=== PATIENT | male | born 1990 | race Caucasian/White ===

== ENCOUNTER 2024-08-10 13:24 | Emergency (ER) | payer MEDICAID ==
[~2024-08-10] VITALS: Ht 177.8 cm; Wt 78.0 kg
[2024-08-10 13:27] VITALS: BP 100/53; PULSE 70; RESP 20; TEMP 36.8; O2SAT 100
== END 2024-08-10 14:55 | disposition home or self-care (01) ==
LOC: ER 13:24
DX: S61.412A Laceration without foreign body of left hand, initial encounter (principal); W26.0XXA Contact with knife, initial encounter; Y93.89 Activity, other specified; Y92.89 Other specified places as the place of occurrence of the external cause; Y99.8 Other external cause status
CPT/HCPCS: 99283; Z7610